=== PATIENT | female | born 1990 | race American Indian/Alaskan Native ===

== ENCOUNTER 2016-07-22 11:13 | Emergency (ER) | payer SELFPAY ==
--- NOTE | 2016-07-22 16:46 | Emergency Department Report ---
HPI - HPI HPI: The patient is a 26 -year-old male who presents to ED complaining of 8/10 pain in the right side of his mouth x 2 days . Patient states that the pain started 2 days ago and has increased in severity today. The pain is exacerbated by eating and opening of the mouth. Patient states the pain is alleviated initially with aleve pain medication but comes back. Patient states that it radiates towards ear. Patient describes a as a throbbing, pressure-like sensation. Patient states otherwise well and has no other complaints. Patient has had no fevers and no chills. No chest pain, no shortness of breath. No abdominal pain. No shortness of breath or recent trauma to the face. <SENG TORRES - Last Filed: 07/22/16 16:41> <MILLIE VOGT - Last Filed: 07/23/16 00:14> - General Chief Complaint: Dental/Oral Time Seen by Provider: 07/22/16 16:40 ED Past Medical Hx - Past Medical History Previous Medical History?: No - Surgical History Past Surgical History?: No - Social History Smoking Status: Current Every Day Smoker Substance Use Type: None <SENG TORRES - Last Filed: 07/22/16 16:41> <MILLIE VOGT - Last Filed: 07/23/16 00:14> - Medications Home Medications: Home Medications Medication Instructions Recorded Confirmed Last Taken Type Amoxicillin [Amoxicillin TAB] 875 mg PO BID #20 tablet 07/22/16 Unknown Rx Ibuprofen [Motrin 800 MG tab] 800 mg PO Q8HR PRN #30 tablet 07/22/16 Unknown Rx ED Review of Systems ROS: Stated complaint: SWOLLEN JAW Other details as noted in HPI Constitutional: denies: chills, fever Eyes: denies: eye pain, eye discharge, vision change ENT: dental pain. denies: ear pain, throat pain, hearing loss, congestion Respiratory: denies: cough, shortness of breath, wheezing Cardiovascular: denies: chest pain, palpitations Endocrine: no symptoms reported Gastrointestinal: denies: abdominal pain, nausea, diarrhea Genitourinary: denies: urgency, dysuria, discharge Musculoskeletal: denies: back pain, joint swelling, arthralgia Skin: denies: rash, lesions Neurological: denies: headache, weakness, paresthesias Psychiatric: denies: anxiety, depression Hematological/Lymphatic: denies: easy bleeding, easy bruising <Gerard TORRESPATRIZIA A - Last Filed: 07/22/16 16:41> ROS: Stated complaint: SWOLLEN JAW Other details as noted in HPI <MILLIE VOGT C - Last Filed: 07/23/16 00:14> Physical Exam - Physical Exam Vital Signs: Vital Signs 07/22/16 12:56 Temperature 98.5 F Pulse Rate 66 Respiratory 18 Rate Blood Pressure 116/73 O2 Sat by Pulse 99 Oximetry Physical Exam: GENERAL: Alert and oriented x3, no apparent distress, Normal Gait, atraumatic. HEAD: Head is normocephalic and a-traumatic. EYES: Extra ocular muscles are intact. Pupils are equal, round, and reactive to light and accommodation. EARS: symetrical, atraumatic, non tender, ear canal clear and moderate cerumen, tympanic membrance non inflamed. gross auditory nml bilaterally. NOSE: Nose symetrical, Nontender,Nares appeared normal. MOUTH:Mouth is well hydrated and without lesions. Tonsils nonerythematous or swollen, Uvula midline, Tongue not elevated. Mucous membranes are moist. Posterior pharynx clear, no exudate or lesions. Patent airways. No fractured or broken or missing tooth. Mild gingival enlargement on tooth #16. Mild tenderness to palpation of the gum. No bleeding. NECK: Supple. Non edematous, No carotid bruits. No lymphadenopathy or thyromegaly. LUNGS: Symetrical with respiration, No wheezing, no rales or crackles, CTAB. HEART: S1, S2 present, regular rate and rhythm without murmur, no rubs, no gallops. ABDOMEN: No organomegaly was noted,Positive bowel sounds, soft, and non- distended. . Nontender to palpation on all Quadrants, NO CVA tenderness. SKIN: Warm and dry, No lesions, No ulceration or induration present. <MELISSAGerardPATRIZIA Lon - Last Filed: 07/22/16 16:41> - Physical Exam Vital Signs: Vital Signs 07/22/16 07/22/16 12:56 17:20 Temperature 98.5 F 98.2 F Pulse Rate 66 78 Respiratory 18 18 Rate Blood Pressure 116/73 Blood Pressure 118/80 [Right] O2 Sat by Pulse 99 100 Oximetry <MILLIE VOGT - Last Filed: 07/23/16 00:14> ED Course Vital Signs 07/22/16 12:56 Temperature 98.5 F Pulse Rate 66 Respiratory 18 Rate Blood Pressure 116/73 O2 Sat by Pulse 99 Oximetry <SENG TORRES A - Last Filed: 07/22/16 16:41> Vital Signs 07/22/16 07/22/16 12:56 17:20 Temperature 98.5 F 98.2 F Pulse Rate 66 78 Respiratory 18 18 Rate Blood Pressure 116/73 Blood Pressure 118/80 [Right] O2 Sat by Pulse 99 100 Oximetry <MILLIE VOGT C - Last Filed: 07/23/16 00:14> ED Medical Decision Making - Medical Decision Making 26-year-old female presents with dental pain secondary to abscess ED course: Patient states she took some Aleve earlier today. Discussed the patient gave home medication of Motrin and antibiotics for 10 days. Discussed the patient and take all antibiotics until finished. Vital signs stable. Patient is in no acute distress <SENG TORRES - Last Filed: 07/22/16 16:41> - Medical Decision Making I spoke to Nikki at this time to inform her that amoxicillin is not good coverage for dental abscess. She would need Pen-Vee K, Augmentin, or clindamycin. She will call patient to make a prescription change. <MILLIE VGOT - Last Filed: 07/23/16 00:14> Critical care attestation.: If time is entered above; I have spent that time in minutes in the direct care of this critically ill patient, excluding procedure time. <SENG TORRES A - Last Filed: 07/22/16 16:41> Critical care attestation.: If time is entered above; I have spent that time in minutes in the direct care of this critically ill patient, excluding procedure time. <MILLIE VOGT - Last Filed: 07/23/16 00:14> ED Disposition Is pt being admited?: No Does the pt Need Aspirin: No Time of Disposition: 16:49 <SENG TORRES - Last Filed: 07/22/16 16:41> <MILLIE VOGT C - Last Filed: 07/23/16 00:14> Disposition: DISCHARGED TO HOME OR SELFCARE Condition: Stable Instructions: Dental Abscess (ED), Toothache (ED) Additional Instructions: follow up with your Dentist in [place] Take medications as prescribed Prescriptions: Amoxicillin [Amoxicillin TAB] 875 mg PO BID #20 tablet Ibuprofen [Motrin 800 MG tab] 800 mg PO Q8HR PRN #30 tablet PRN Reason: Pain Referrals: PRIMARY CARE, [Primary Care Provider] - 3-5 Days Forms: Work/School Release Form(ED)
[2016-07-22 17:21] VITALS: BP 118/80
== END 2016-07-22 17:21 | disposition home or self-care (01) ==
LOC: ED 11:13
DX: K13.79 Other lesions of oral mucosa (principal); F17.200 Nicotine dependence, unspecified, uncomplicated
CPT/HCPCS: 99282

== ENCOUNTER 2017-02-23 18:00 | Emergency (ER) | payer SELFPAY ==
[2017-02-23 18:28] VITALS: BP 123/72
[2017-02-23 19:02] LABS: Basophils % (Auto) 0.6 % (0.0-1.8); Eosinophils % (Auto) 0.5 % (0.0-4.3); Hemoglobin 13.5 gm/dl (10.1-14.3); Mean Corpuscular HGB Conc 35 % (30-34); Mean Corpuscular Hemoglobin 31 pg (28-32); Mean Corpuscular Volume 89 fl (79-97); Platelet Count 187 K/mm3 (140-440); Red Blood Count 4.38 M/mm3 (3.65-5.03); Red Cell Distribution Width 13.8 % (13.2-15.2); White Blood Count 7.2 K/mm3 (4.5-11.0)
[2017-02-23 19:15] LABS: Bacteria,Urine 1+ /HPF (Negative); Bilirubin,Urine NEG (Negative); Blood,Urine LG (Negative); Ketones,Urine NEG (Negative); Leukocyte Esterase,Urine NEG (Negative); Mucus,Urine 2+ /HPF; Nitrite,Urine NEG (Negative); Protein,Urine <15 mg/dL mg/dL (Negative); Urobilinogen,Urine < 2.0 mg/dL (<2.0)
[2017-02-23 19:17] LABS: Alanine Aminotransferase 13 units/L (7-56); Albumin 4.4 g/dL (3.9-5); Albumin/Globulin Ratio 1.4 %; Alkaline Phosphatase 65 units/L (35-129); Anion Gap 17 mmol/L; BUN/Creatinine Ratio 12; Blood Urea Nitrogen 7 mg/dL (7-17); Calcium 9.3 mg/dL (8.4-10.2); Carbon Dioxide 26 mmol/L (22-30); Chloride 103.2 mmol/L (98-107); Glucose 87 mg/dL (65-100); Lipase 54 units/L (13-60); Potassium 4.2 mmol/L (3.6-5.0); Sodium 142 mmol/L (137-145); Total Protein 7.5 g/dL (6.3-8.2)
== END 2017-02-23 23:20 | disposition left against medical advice (07) ==
LOC: ED 18:00
DX: M79.1 Myalgia (principal); Z53.21 Procedure and treatment not carried out due to patient leaving prior to being seen by health care provider
CPT/HCPCS: 36415; 80053; 81001; 81025; 83690; 85025